=== PATIENT | male | born 1960 | race Caucasian/White ===

== ENCOUNTER 2019-12-25 09:31 | Emergency (ER) | payer OTHER ==
--- NOTE | 2019-12-25 11:18 | ED ---
Lower Extremity - HPI Summary HPI Summary: 59-year-old male presents to emergency department today complaining of right leg pain and weakness which began at 8:00 this morning. Patient is ambulatory however he says this makes his pain worse. Patient has increased pain with dorsiflexion of the right foot. Patient reports no pain with palpation of the right foot. There is no evidence of ecchymosis or edema are noted. Patient has full range of motion with 5 out 5 strength bilaterally. Patient denies other symptoms such as fever, chest pain, abdominal pain, shortness of breath, pain with urination, rash. Patient denies recent travel, surgery, immobilization. Patient has no history of blood clots and has no blood clotting disorder. Surgical history and family history is noncontributory. Patient denies history of trauma. - History of Current Complaint Chief Complaint: EDExtremityLower Stated Complaint: WEAKNESS AND PAIN RIGHT LEG PER PT Time Seen by Provider: 12/25/19 11:17 Hx Obtained From: Patient Onset of Pain: Hours Onset/Duration: Hours Severity Initially: Mild Severity Currently: Mild Pain Intensity: 1 Pain Scale Used: 0-10 Numeric Timing: Constant Location: Is Discrete @ - Right calf Character Of Pain: Aching Associated Signs And Symptoms: Positive: Weakness - Subjective weakness. Negative: Swelling, Redness, Bruising Aggravating Factor(s): Standing, Ambulation, Movement, Weight Bearing Alleviating Factor(s): Rest - Allergies/Home Medications Allergies/Adverse Reactions: Allergies Allergy/AdvReac Type Severity Reaction Status Date / Time No Known Allergies Allergy Verified 09/11/19 12:14 PMH/Surg Hx/FS Hx/Imm Hx Endocrine/Hematology History: Denies: Hx Diabetes Cardiovascular History: Reports: Hx Hypertension - ON DAILY MEDS History: Reports: Hx Kidney Stones - RECURRING Denies: Hx Renal Disease - hx kidney stones and surgery Musculoskeletal History: Reports: Hx Arthritis - HANDS & WRISTS Denies: Hx Osteoporosis Sensory History: Reports: Hx Cataracts - BILATERAL EXTRACTION 2002 , 2003, Hx Contacts or Glasses - GLASSES Denies: Hx Hearing Aid Opthamlomology History: Reports: Hx Cataracts - BILATERAL EXTRACTION 2002 , 2003 , Hx Contacts or Glasses - GLASSES - Surgical History Surgery Procedure, Year, and Place: eye surgery bilat; previous kidney stent- LT ; TONSILLECTOMY. R side inguinal hernia repair November 2018. Hx Anesthesia Reactions: No Infectious Disease History: No Infectious Disease History: Denies: Traveled Outside the [place] in Last 30 Days - Social History Alcohol Use: Weekly Alcohol Amount: 2-3 DRINKS/WEEK Substance Use Type: Reports: None Smoking Status (MU): Former Smoker Amount Used/How Often: 1PPWEEK, 10 YRS Have You Smoked in the Last Year: No Review of Systems Constitutional: Negative Eyes: Negative ENT: Negative Cardiovascular: Negative Respiratory: Negative Gastrointestinal: Negative Genitourinary: Negative Positive: Arthralgia, Myalgia Skin: Negative Neurological: Negative Psychological: Normal All Other Systems Reviewed And Are Negative: Yes Physical Exam - Summary Physical Exam Summary: Patient is able to ambulate with a cane with a mildly antalgic gait. Positive Homans sign on the right lower extremity. Pain has no tenderness to palpation of the anterior right lower extremity or left calf. Patient endorses pain with regulation of the right calf. Negative Robertson test. Patient has 2+ dorsalis pedis pulses bilaterally and is neurovascularly intact. No evidence of ecchymosis or erythema or edema. Triage Information Reviewed: Yes Vital Signs On Initial Exam: Initial Vitals Temp Pulse Resp BP Pulse Ox 98.2 F 64 18 126/72 99 12/25/19 09:33 12/25/19 09:33 12/25/19 09:33 12/25/19 09:33 12/25/19 09:33 Vital Signs Reviewed: Yes Appearance: Positive: Well-Appearing, No Pain Distress, Well-Nourished Skin: Positive: Warm, Skin Color Reflects Adequate Perfusion Eyes: Positive: EOMI, [facility] ENT: Positive: Hearing grossly normal Respiratory/Lung Sounds: Positive: Clear to Auscultation, Breath Sounds Present Cardiovascular: Positive: RRR, S1, S2 Abdomen Description: Positive: Nontender, Soft. Negative: Distended, Guarding Bowel Sounds: Positive: Present Musculoskeletal: Positive: Strength/ROM Intact Neurological: Positive: Sensory/Motor Intact, Alert, Oriented to Person Place, Time, Normal Gait, Facial Symmetry, Speech Normal Psychiatric: Positive: Normal, Affect/Mood Appropriate AVPU Assessment: Alert Procedures - Sedation Patient Received Moderate/Deep Sedation with Procedure: No Diagnostics - Vital Signs Vital Signs Temp Pulse Resp BP Pulse Ox 12/25/19 09:33 98.2 F 64 18 126/72 99 - Laboratory Lab Statement: Any lab studies that have been ordered have been reviewed, and results considered in the medical decision making process. Lower Extremity Course/Dx - Course Course Of Treatment: Patient was evaluated in the emergency department today for right lower extremity pain. Vitals noted. Patient had no ecchymosis or edema of the right lower extremity however he did have tenderness with ambulation and a positive Homans sign. Doppler ultrasound of the right lower extremity was done to investigate possible DVT. Ultrasound returned showing acute appearing right lower extremity deep venous thrombosis seen as far proximal as the distal segment of the small vein. Patient was given aliquots as well as an outpatient prescription and told to follow-up with his primary care provider for further evaluation and management. Patient was informed of the increased risk of bleeding that he is on blood thinners and to exercise caution. - Diagnoses Differential Diagnosis/HQI/PQRI: Positive: Arthritis, Contusion, DVT, Fracture ( Closed), Phlebitis, Sprain, Strain Provider Diagnoses: Deep vein thrombosis (DVT) of right lower extremity Discharge ED - Sign-Out/Discharge Documenting (check all that apply): Patient Departure - Discharge Plan Condition: Stable Disposition: HOME Prescriptions: Apixaban* [Eliquis*] 5 mg PO BID #50 tab Patient Education Materials: Deep Vein Thrombosis (ED) Referrals: Leonardo Larios MD [Primary Care Provider] - 3 Days Additional Instructions: You were seen in the emergency department today and diagnosed with a DVT in the right leg. This is a blood clot which may be treated with blood thinners. I have given you the first dose of this blood thinner in the emergency department , please go to your pharmacy and pick pack worker the prescription I have sent. Please take 10 mg 2 times a day for 7 days and then begin taking 5 mg twice daily until you're seen by your primary care provider. Please return to the emergency department immediately if you develop any new or worsening symptoms such as shortness of breath, persistent cough, palpitations or high heart rate. Please be aware of these medications be increased risk for bleeding so please be careful and avoid trauma. - Billing Disposition and Condition Condition: STABLE Disposition: Home
[2019-12-25] MEDS ORDERED: Apixaban* 5 MG TAB PO ONE (12:25)
[2019-12-25 13:04] VITALS: BP 112/73
== END 2019-12-25 13:03 | disposition home or self-care (01) ==
LOC: ED 09:31
DX: I82.401 Acute embolism and thrombosis of unspecified deep veins of right lower extremity (principal); I10 Essential (primary) hypertension; Z87.442 Personal history of urinary calculi; Z87.891 Personal history of nicotine dependence; Z79.899 Other long term (current) drug therapy
CPT/HCPCS: 99282